=== PATIENT | male | born 1955 | race Caucasian/White ===

== ENCOUNTER 2020-05-06 09:56 | Day surgery (SDC) | payer MEDICARE, OTHER ==
[~2020-05-06] VITALS: Ht 185.4 cm; Wt 113.0 kg
[~2020-05-06 09:56] MED LIST: AMPDEX15CR PO; ASPI325 PO; ATOR20 PO; LANS30EC PO; LOSA25; LOSARTAN-HCTZ1 EAC1 PO; OMEP20ER PO; Prinivil10 MG PO
== END 2020-05-06 11:43 | disposition home or self-care (01) ==
LOC: ORSCSDS 09:56
PROVIDERS: Internal Medicine Gastroenterology
PROC: 0DB68ZX Excision of Stomach, Via Natural or Artificial Opening Endoscopic, Diagnostic (ICD-10-PCS; principal; 2020-05-06 11:00)
PROC: 0DB58ZX Excision of Esophagus, Via Natural or Artificial Opening Endoscopic, Diagnostic (ICD-10-PCS; principal; 2020-05-06 11:00)
DX: K22.70 Barrett's esophagus without dysplasia (principal); K31.7 Polyp of stomach and duodenum; G47.30 Sleep apnea, unspecified; E66.9 Obesity, unspecified; Z68.33 Body mass index [BMI] 33.0-33.9, adult; K57.30 Diverticulosis of large intestine without perforation or abscess without bleeding; Z79.82 Long term (current) use of aspirin; Z79.899 Other long term (current) drug therapy
CPT/HCPCS: 88305; J2704; J7120

== ENCOUNTER → 2020-09-28 | Outpatient (CLI) | payer MEDICARE, OTHER | END | disposition home or self-care (01) | LOC: PLD 12:40 → LAB SHORT 12:40 | DX: L57.0 Actinic keratosis (principal); D04.39 Carcinoma in situ of skin of other parts of face | CPT/HCPCS: 88305 ==

== ENCOUNTER → 2021-06-30 | Outpatient (CLI) | payer MEDICARE, OTHER | LOC: LAB 12:23 → LAB SHORT 12:23 | DX: D48.5 Neoplasm of uncertain behavior of skin (principal); D23.4 Other benign neoplasm of skin of scalp and neck; L82.1 Other seborrheic keratosis; C44.41 Basal cell carcinoma of skin of scalp and neck | CPT/HCPCS: 88305 ==

== ENCOUNTER → 2022-01-13 | Outpatient (CLI) | payer MEDICARE | END | disposition home or self-care (01) | LOC: LAB SHORT 10:52 → LAB 10:52 → PLD 10:52 | DX: D48.5 Neoplasm of uncertain behavior of skin (principal); L82.1 Other seborrheic keratosis | CPT/HCPCS: 88305 ==

== ENCOUNTER → 2022-07-05 | Outpatient (CLI) | payer MEDICARE | END | disposition home or self-care (01) | LOC: PLD 11:23 → LAB SHORT 11:23 | DX: D48.5 Neoplasm of uncertain behavior of skin (principal) | CPT/HCPCS: 88305 ==

== ENCOUNTER → 2023-04-11 | Outpatient (CLI) | payer MEDICARE | END | disposition home or self-care (01) | LOC: PLD 12:21 → LAB SHORT 12:21 | DX: D48.5 Neoplasm of uncertain behavior of skin (principal) | CPT/HCPCS: 88305 ==

== ENCOUNTER → 2023-08-24 | Outpatient (CLI) | payer MEDICARE ==
[~2023-08-24] MED LIST changes: +FLUT1DIS2
== END ==
LOC: LAB SHORT 12:21 → LAB 12:21
DX: D04.21 Carcinoma in situ of skin of right ear and external auricular canal (principal); C44.619 Basal cell carcinoma of skin of left upper limb, including shoulder; L57.0 Actinic keratosis; D18.01 Hemangioma of skin and subcutaneous tissue
CPT/HCPCS: 88305

== ENCOUNTER → 2023-11-08 | Outpatient (CLI) | payer MEDICARE ==
[2023-11-08 13:22] LABS: Stool Occult Bld Immuno 1 Positive (NEGATIVE)
[2023-11-08 13:23] LABS: Stool Occult Bld Immuno 2 Negative (NEGATIVE)
== END ==
LOC: LAB 11:49 → LAB SHORT 11:49
PROVIDERS: Internal Medicine Gastroenterology
DX: Z12.11 Encounter for screening for malignant neoplasm of colon (principal)
CPT/HCPCS: 82274

== ENCOUNTER 2024-01-31 06:26 | Day surgery (SDC) | payer MEDICARE ==
[~2024-01-31] VITALS: Ht 185.4 cm; Wt 108.3 kg
[2024-01-31] MEDS ORDERED: Oxymetazoline 0.05% Nasal Relief Spray 15mL BTL ONE (07:00)
[2024-01-31] MEDS ORDERED: Lidocaine 2%-Epineph 1:100000 20 ML MDV ONE (07:00)
[2024-01-31] MEDS ORDERED: BREO ELLIPTA 11 EAC1 (07:08)
[2024-01-31] MEDS ORDERED: Lactated Ringer's 1,000 ML IV ONE ×2 (07:20→09:24)
[2024-01-31] MEDS ORDERED: FentaNYL Citrate 50 MCG/ML 2 ML Injection ONE (07:26)
[2024-01-31] MEDS ORDERED: Dexamethasone Sod Phos 10 MG/ML 1ML VIAL ONE (07:26)
[2024-01-31] MEDS ORDERED: propofoL 20 ML IV ONE (07:26)
[2024-01-31] MEDS ORDERED: Ondansetron HCl 2 MG / ML 2ML Vial ONE (07:26)
[2024-01-31] MEDS ORDERED: Rocuronium Bromide 10 MG/ML 5ML Injection IV ONE (07:27)
[2024-01-31] MEDS ORDERED: EPINEPhrine HCl 1 MG/ML 1ML Amp XX ONE (07:50)
[2024-01-31] MEDS ORDERED: Sodium Chloride 0.9% Inj 10 ML Vial INJ ONE (07:50)
--- NOTE | 2024-01-31 08:01 | NUR ---
01/31/24 0801 Sofia Tinsley 5ML OF LIDOCAINE 2% WITH EPI 1:100,000 DILUTED 1:1 WITH NORMAL SALINE TO MAKE LIDOCAINE 1% WITH EPI 1:200,000 FOR INJECTION AT OPSITE BY DR JANE. 0.5ML INJECTED. 14ML OF EPI (1MG/ML) USED TO SOAK PLEDGETS FOR NASAL PACKING BY DR JANE
[2024-01-31] MEDS ORDERED: Sugammadex Sodium 200 MG/2ML SDV (100 MG/ML) ONE (08:16)
[2024-01-31 09:01] VITALS: BP 145/93
== END 2024-01-31 09:27 | disposition home or self-care (01) ==
LOC: ORSCSDS 06:26
PROVIDERS: Otolaryngology
PROC: 097G8ZZ Dilation of Left Eustachian Tube, Via Natural or Artificial Opening Endoscopic (ICD-10-PCS; principal; 2024-01-31 07:30)
PROC: 097F8ZZ Dilation of Right Eustachian Tube, Via Natural or Artificial Opening Endoscopic (ICD-10-PCS; principal; 2024-01-31 07:30)
DX: H69.93 Unspecified Eustachian tube disorder, bilateral (principal); J98.11 Atelectasis; G47.33 Obstructive sleep apnea (adult) (pediatric); K21.9 Gastro-esophageal reflux disease without esophagitis; Z79.899 Other long term (current) drug therapy; Z86.73 Personal history of transient ischemic attack (TIA), and cerebral infarction without residual deficits; Z79.82 Long term (current) use of aspirin
CPT/HCPCS: A9270; J0171; J1100; J2405; J2704; J3010; J7120